=== PATIENT | male | born 1975 | race Caucasian/White ===

== ENCOUNTER → 2018-04-04 | Outpatient (CLI) | payer OTHER | END | disposition home or self-care (01) | LOC: RESCLI 10:17 | DX: E78.5 Hyperlipidemia, unspecified (principal); H60.501 Unspecified acute noninfective otitis externa, right ear; E78.00 Pure hypercholesterolemia, unspecified; Z88.0 Allergy status to penicillin ==

== ENCOUNTER → 2018-04-17 | Outpatient (CLI) | payer OTHER ==
[2018-04-17 10:12] LABS: BASO # 0.1 10*3/uL (0.0-0.1); EOS # 0.2 10*3/uL (0.0-0.4); EOS % 2.1 % (1.0-4.0); HEMATOCRIT 49.4 % (42.0-52.0); HEMOGLOBIN 16.8 g/dl (14.0-18.0); LYMPH # 2.4 10*3/uL (1.3-4.4); LYMPH % 33.8 % (27.0-41.0); MEAN CELL VOLUME 93.9 fl (80.0-94.0); MEAN CORPUSCULAR HGB 31.9 pg (27.0-31.0); MEAN PLATELET VOLUME 9.4 fl (9.6-12.3); MONO # 0.6 10*3/uL (0.1-1.0); MONO % 8.2 % (3.0-9.0); NEUT # 3.8 10*3/uL (2.3-7.9); NEUT % 54.5 % (47.0-73.0); PLATELET COUNT AUTOMATED 290 10*3/uL (130-400); RED BLOOD COUNT 5.26 10*6/uL (4.50-5.90); RED CELL DISTRI WIDTH 11.8 % (0-14.5)
[2018-04-17 10:38] LABS: ALBUMIN 4.1 gm/dl (3.1-4.5); ALKALINE PHOSPHATASE 96 U/L (45-117); BUN 20 mg/dl (7-24); CHLORIDE 102 mmol/L (98-107); CHOLESTEROL 327 mg/dL (<200); CREATININE 0.98 mg/dL (0.70-1.30); HDL CHOLESTEROL 38 mg/dl (40-60); LDL CHOLESTEROL 227 mg/dL (9-159); POTASSIUM 5.1 mmol/L (3.5-5.1); SGOT/AST 22 IU/L (3-35); SGPT/ALT 31 U/L (12-78); SODIUM 139 mmol/L (136-145); TOTAL PROTEIN 7.9 gm/dL (6.4-8.2); TRIGLYCERIDES 308 mg/dl (<150); VLDL CHOLESTEROL 62 mg/dL (6-40)
[2018-04-17 11:11] LABS: VITAMIN D, 25-HYDROXY 12.6 ng/mL (30-100)
== END | disposition home or self-care (01) ==
LOC: RESCLI 02:50
PROVIDERS: Internal Medicine
DX: E78.00 Pure hypercholesterolemia, unspecified (principal); H61.23 Impacted cerumen, bilateral; B49 Unspecified mycosis; E55.9 Vitamin D deficiency, unspecified; Z88.0 Allergy status to penicillin

== ENCOUNTER 2018-12-04 08:42 | Emergency (ER) | payer OTHER ==
[~2018-12-04] VITALS: Ht 175.2 cm; Wt 79.4 kg
[2018-12-04] MEDS ORDERED: Tobrex Ophth S2.5 ML OPH (09:44)
== END 2018-12-04 10:00 | disposition home or self-care (01) ==
LOC: ED 08:42
DX: S05.01XA Injury of conjunctiva and corneal abrasion without foreign body, right eye, initial encounter (principal); Z88.0 Allergy status to penicillin; X58.XXXA Exposure to other specified factors, initial encounter; Y93.89 Activity, other specified; Y92.89 Other specified places as the place of occurrence of the external cause; Y99.8 Other external cause status

== ENCOUNTER → 2019-01-10 | Outpatient (CLI) | payer OTHER ==
[~2019-01-10] MED LIST: Tobrex Ophth S2.5 ML OPH
== END | disposition home or self-care (01) ==
LOC: RESCLI 01:24
DX: R10.32 Left lower quadrant pain (principal); H93.12 Tinnitus, left ear; B49 Unspecified mycosis; E55.9 Vitamin D deficiency, unspecified; E78.00 Pure hypercholesterolemia, unspecified; Z79.899 Other long term (current) drug therapy

== ENCOUNTER → 2019-04-03 | Outpatient (CLI) | payer OTHER ==
[2019-04-03 09:04] LABS: BASO # 0.1 10*3/uL (0.0-0.1); BASO % 0.8 % (0.0-1.0); EOS # 0.2 10*3/uL (0.0-0.4); EOS % 2.2 % (1.0-4.0); LYMPH # 2.6 10*3/uL (1.3-4.4); LYMPH % 35.8 % (27.0-41.0); MEAN CELL VOLUME 95.2 fl (80.0-94.0); MEAN CORPUSCULAR HGB 31.7 pg (27.0-31.0); MEAN CORPUSCULAR HGB CONC 33.3 g/dl (33.0-37.0); MEAN PLATELET VOLUME 9.2 fl (9.6-12.3); MONO # 0.7 10*3/uL (0.1-1.0); MONO % 9.8 % (3.0-9.0); NEUT # 3.7 10*3/uL (2.3-7.9); PLATELET COUNT AUTOMATED 321 10*3/uL (130-400); RED BLOOD COUNT 5.04 10*6/uL (4.50-5.90); RED CELL DISTRI WIDTH 11.9 % (0-14.5); WHITE BLOOD COUNT 7.3 10*3/uL (4.8-10.8)
[2019-04-03 09:40] LABS: CHLORIDE 105 mmol/L (98-107); POTASSIUM 4.3 mmol/L (3.5-5.1); SODIUM 140 mmol/L (136-145)
[2019-04-03 09:56] LABS: ALKALINE PHOSPHATASE 96 U/L (45-117); BUN 19 mg/dl (7-24); CHOLESTEROL 349 mg/dL (<200); CREATININE 1.01 mg/dL (0.70-1.30); HDL CHOLESTEROL 35 mg/dl (40-60); LDL CHOLESTEROL 251 mg/dL (9-159); SGOT/AST 16 IU/L (3-35); SGPT/ALT 45 U/L (12-78); TOTAL PROTEIN 7.6 gm/dL (6.4-8.2); TRIGLYCERIDES 317 mg/dl (<150); VLDL CHOLESTEROL 63 mg/dL (6-40)
== END | disposition home or self-care (01) ==
LOC: LAB 08:41
PROVIDERS: Nurse Practitioner Primary Care
DX: M41.85 Other forms of scoliosis, thoracolumbar region (principal); M43.9 Deforming dorsopathy, unspecified; E78.5 Hyperlipidemia, unspecified

== ENCOUNTER 2019-08-08 19:27 | Emergency (ER) | payer OTHER ==
[~2019-08-08] VITALS: Ht 172.7 cm; Wt 90.7 kg
[2019-08-08 20:57] LABS: BASO # 0.1 10*3/uL (0.0-0.1); BASO % 1.1 % (0.0-1.0); EOS # 0.2 10*3/uL (0.0-0.4); EOS % 2.5 % (1.0-4.0); HEMATOCRIT 45.3 % (42.0-52.0); LYMPH # 3.2 10*3/uL (1.3-4.4); LYMPH % 39.9 % (27.0-41.0); MEAN PLATELET VOLUME 9.3 fl (9.6-12.3); MONO # 0.6 10*3/uL (0.1-1.0); MONO % 7.6 % (3.0-9.0); NEUT # 3.9 10*3/uL (2.3-7.9); NEUT % 48.6 % (47.0-73.0); PLATELET COUNT AUTOMATED 283 10*3/uL (130-400); RED BLOOD COUNT 4.82 10*6/uL (4.50-5.90); RED CELL DISTRI WIDTH 11.9 % (0-14.5)
[2019-08-08 21:07] LABS: INTERNATIONAL NORM RATIO 0.9 (2.0-3.5)
[2019-08-08 21:14] LABS: ALBUMIN 3.9 gm/dl (3.1-4.5); ALKALINE PHOSPHATASE 89 U/L (45-117); BUN 19 mg/dl (7-24); CHLORIDE 104 mmol/L (98-107); CREATININE 0.95 mg/dL (0.70-1.30); FREE T4 0.75 ng/dl (0.76-1.46); POTASSIUM 4.1 mmol/L (3.5-5.1); SGOT/AST 33 IU/L (3-35); SGPT/ALT 65 U/L (12-78); SODIUM 138 mmol/L (136-145); TOTAL PROTEIN 7.4 gm/dL (6.4-8.2)
[2019-08-08 21:24] LABS: TROPONIN I < 0.015 ng/ml (<0.045)
== END 2019-08-08 22:37 | disposition home or self-care (01) ==
LOC: ED 19:27
PROVIDERS: Physician Assistant
DX: R20.2 Paresthesia of skin (principal); I10 Essential (primary) hypertension; E78.00 Pure hypercholesterolemia, unspecified; Z79.899 Other long term (current) drug therapy; Z88.0 Allergy status to penicillin

== ENCOUNTER → 2019-09-10 | Outpatient (CLI) | payer OTHER ==
[2019-09-10 07:55] VITALS: BP 121/85
[2019-09-10 10:11] LABS: ALBUMIN 4.3 gm/dl (3.1-4.5); ALKALINE PHOSPHATASE 93 U/L (45-117); BUN 24 mg/dl (7-24); CHLORIDE 102 mmol/L (98-107); CHOLESTEROL 348 mg/dL (<200); CREATININE 0.95 mg/dL (0.70-1.30); FREE T4 0.73 ng/dl (0.76-1.46); HDL CHOLESTEROL 36 mg/dl (40-60); LDL CHOLESTEROL 268 mg/dL (9-159); POTASSIUM 4.3 mmol/L (3.5-5.1); SGOT/AST 12 IU/L (3-35); SGPT/ALT 34 U/L (12-78); SODIUM 136 mmol/L (136-145); T3 UPTAKE 31 % (31-39); THYROXINE (T4) TOTAL 6.3 ug/dl (4.5-12.1); TOTAL PROTEIN 8.3 gm/dL (6.4-8.2); TRIGLYCERIDES 221 mg/dl (<150); VLDL CHOLESTEROL 44 mg/dL (6-40)
[2019-09-11 08:11] LABS: FOLLICLE STIMULATING HORMONE 3.2 mIU/mL (1.5-12.4); LUTEINIZING HORMONE 1.7 mIU/mL (1.7-8.6); PROLACTIN 22.6 ng/mL (4.0-15.2); SEX HORMONE BINDING GLOBULIN 22.8 nmol/L (16.5-55.9)
[2019-09-11 13:08] LABS: CORTISOL #2 28.7 ug/dL (Not Estab.); CORTISOL #3 34.4 ug/dL (Not Estab.); CORTISOL BASELINE 16.4 ug/dL (.)
[2019-09-12 06:10] LABS: HUMAN GROWTH HORMONE 0.4 ng/mL (0.0-10.0); INSULIN-LIKE GROWTH FACTOR-1 218 ng/mL (81-263)
[2019-09-13 12:10] LABS: TESTOSTERONE FREE, (DIRECT) 10.5 pg/mL (6.8-21.5)
== END | disposition home or self-care (01) ==
LOC: LAB 07:42 → INJECTION 07:42
PROVIDERS: Internal Medicine Endocrinology, Diabetes & Metabolism
DX: D35.2 Benign neoplasm of pituitary gland (principal); I10 Essential (primary) hypertension; E78.00 Pure hypercholesterolemia, unspecified

== ENCOUNTER → 2019-10-07 | Outpatient (CLI) | payer OTHER ==
[2019-10-07 11:16] LABS: FREE T4 1.68 ng/dl (0.76-1.46)
[2019-10-07 11:21] LABS: THYROID STIM HORMONE (HS) 0.026 uIU/ml (0.358-4.75)
== END | disposition home or self-care (01) ==
LOC: LAB 10:17
PROVIDERS: Physical Medicine & Rehabilitation
DX: E03.8 Other specified hypothyroidism (principal)

== ENCOUNTER → 2020-02-26 | Outpatient (CLI) | payer OTHER ==
[~2020-02-26] MED LIST changes: +LEVOTHYROXINE100 MC1 PO; +MULTIVITAMIN1 EACH PO; +PREDNISONE20 M1 PO; +PROPRANOLOL HYD20 MG PO; +PROTONIX40 MG PO; +VITAMIN B-125000 MC2 PO; +VITAMIN D350 MC2 GT
[2020-02-26 10:48] LABS: HEMATOCRIT 50.4 % (42.0-52.0); MEAN CELL VOLUME 97.1 fl (80.0-94.0); MEAN CORPUSCULAR HGB 31.6 pg (27.0-31.0); MEAN CORPUSCULAR HGB CONC 32.5 g/dl (33.0-37.0); MEAN PLATELET VOLUME 9.3 fl (9.6-12.3); PLATELET COUNT AUTOMATED 175 10*3/uL (130-400); RED BLOOD COUNT 5.19 10*6/uL (4.50-5.90); RED CELL DISTRI WIDTH 13.9 % (0-14.5); WHITE BLOOD COUNT 21.4 10*3/uL (4.8-10.8)
[2020-02-26 11:02] LABS: ALBUMIN 3.8 gm/dl (3.1-4.5); ALKALINE PHOSPHATASE 88 U/L (45-117); BUN 20 mg/dl (7-24); CHLORIDE 104 mmol/L (98-107); CHOLESTEROL 308 mg/dL (<200); CREATININE 0.61 mg/dL (0.70-1.30); HDL CHOLESTEROL 58 mg/dl (40-60); LDL CHOLESTEROL 193 mg/dL (9-159); POTASSIUM 4.4 mmol/L (3.5-5.1); SGOT/AST 24 IU/L (3-35); SGPT/ALT 55 U/L (12-78); SODIUM 138 mmol/L (136-145); TOTAL PROTEIN 6.7 gm/dL (6.4-8.2); TRIGLYCERIDES 286 mg/dl (<150); VLDL CHOLESTEROL 57 mg/dL (6-40)
[2020-02-26 11:08] LABS: PLATELET SUFFICIENCY NORMAL (NORMAL); TOTAL CELLS COUNTED 100 #CELLS
[2020-02-26 12:01] LABS: VITAMIN D, 25-HYDROXY 26.5 ng/mL (30-100)
[2020-02-27 03:06] LABS: HEMOGLOBIN 16.9 g/dL (13.0-17.7); RBC 5.27 x10E6/uL (4.14-5.80); WBC 21.9 x10E3/uL (3.4-10.8)
[2020-02-27 15:07] LABS: ABS CD19+ LYMPHS 740 /uL (12-645); ABS CD8 SUPPRESSOR 905 /uL (109-897); ABSOLUTE CD3 1949 /uL (622-2402); ABSOLUTE CD4 HELPER 986 /uL (359-1519); CD4/CD8 RATIO 1.09 (0.92-3.72); PERCENT CD19+LYMPHS 25.5 % (3.3-25.4); PERCENT CD3 POS LYMPHS 67.2 % (57.5-86.2); PERCENT CD8 POS LYMPHS 31.2 % (12.0-35.5)
== END | disposition home or self-care (01) ==
LOC: LAB 00:17
PROVIDERS: Nurse Practitioner Primary Care; Psychiatry & Neurology Neuromuscular Medicine; ATTEND Physical Medicine & Rehabilitation
DX: E78.00 Pure hypercholesterolemia, unspecified (principal); R73.9 Hyperglycemia, unspecified; E55.9 Vitamin D deficiency, unspecified; D35.2 Benign neoplasm of pituitary gland; E23.0 Hypopituitarism; R73.03 Prediabetes

== ENCOUNTER → 2020-03-03 | Outpatient (CLI) | payer OTHER ==
[2020-03-03 09:22] LABS: ACT PARTIAL THROMBO TIME 22.7 SECONDS (20.0-32.1); INTERNATIONAL NORM RATIO 0.9 (2.0-3.5)
== END | disposition home or self-care (01) ==
LOC: LAB 00:13
PROVIDERS: ATTEND Nurse Practitioner Primary Care
DX: Z01.818 Encounter for other preprocedural examination (principal); I10 Essential (primary) hypertension

== ENCOUNTER → 2020-03-05 | Day surgery (SDC) | payer OTHER | LOC: SDC 07:32 | PROVIDERS: ATTEND Psychiatry & Neurology Neuromuscular Medicine | DX: Z45.2 Encounter for adjustment and management of vascular access device (principal) ==

== ENCOUNTER → 2020-04-01 | Outpatient (CLI) | payer OTHER ==
[~2020-04-01] MED LIST changes: +DECADRON6 M1 PO; +DEPO-TESTO100 MG/1 M IM; +FISH OIL 1,0001 EAC4 PO; +NORTRIPTYLINE H50 M1 PO; +PROAIR HFA8.5 GM INH; +VENTOLIN 02.5 MG/3 M INH
[2020-04-01 08:03] LABS: HEMATOCRIT 51.1 % (42.0-52.0); MEAN CELL VOLUME 98.1 fl (80.0-94.0); MEAN CORPUSCULAR HGB 31.9 pg (27.0-31.0); MEAN CORPUSCULAR HGB CONC 32.5 g/dl (33.0-37.0); MEAN PLATELET VOLUME 8.9 fl (9.6-12.3); PLATELET COUNT AUTOMATED 284 10*3/uL (130-400); RED BLOOD COUNT 5.21 10*6/uL (4.50-5.90); RED CELL DISTRI WIDTH 13.6 % (0-14.5); WHITE BLOOD COUNT 14.6 10*3/uL (4.8-10.8)
[2020-04-01 08:27] LABS: BASOPHILS 1 % (0-1); PLATELET SUFFICIENCY NORMAL (NORMAL); POLYCHROMASIA SLIGHT; TOTAL CELLS COUNTED 100 #CELLS
[2020-04-01 08:34] LABS: ALBUMIN 3.5 gm/dl (3.1-4.5); ALKALINE PHOSPHATASE 89 U/L (45-117); BUN 19 mg/dl (7-24); CHLORIDE 104 mmol/L (98-107); CREATININE 0.67 mg/dL (0.70-1.30); POTASSIUM 3.7 mmol/L (3.5-5.1); SGOT/AST 16 IU/L (3-35); SGPT/ALT 53 U/L (12-78); SODIUM 138 mmol/L (136-145); TOTAL PROTEIN 6.6 gm/dL (6.4-8.2)
[2020-04-02 03:07] LABS: HEMATOCRIT 50.7 % (37.5-51.0); RBC 5.13 x10E6/uL (4.14-5.80); WBC 13.8 x10E3/uL (3.4-10.8)
[2020-04-02 15:10] LABS: ABS CD19+ LYMPHS 0 /uL (12-645); ABS CD8 SUPPRESSOR 1224 /uL (109-897); ABSOLUTE CD3 3456 /uL (622-2402); ABSOLUTE CD4 HELPER 2207 /uL (359-1519); PERCENT CD4 POS LYMPHS 61.3 % (30.8-58.5)
== END | disposition home or self-care (01) ==
LOC: LAB 00:52
PROVIDERS: ATTEND Psychiatry & Neurology Neuromuscular Medicine
DX: G61.81 Chronic inflammatory demyelinating polyneuritis (principal); Z79.899 Other long term (current) drug therapy

== ENCOUNTER 2020-05-05 10:56 | Emergency (ER) | payer OTHER ==
[~2020-05-05] VITALS: Ht 175.2 cm; Wt 68.0 kg
[~2020-05-05 10:56] MED LIST changes: -DECADRON6 M1 PO; -DEPO-TESTO100 MG/1 M IM; -FISH OIL 1,0001 EAC4 PO; -NORTRIPTYLINE H50 M1 PO; -PROAIR HFA8.5 GM INH; -VENTOLIN 02.5 MG/3 M INH
[2020-05-05 11:23] LABS: BASO # 0.1 10*3/uL (0.0-0.1); BASO % 0.5 % (0.0-1.0); EOS % 0.2 % (1.0-4.0); HEMATOCRIT 50.7 % (42.0-52.0); LYMPH # 1.6 10*3/uL (1.3-4.4); LYMPH % 17.3 % (27.0-41.0); MEAN CELL VOLUME 96.8 fl (80.0-94.0); MEAN CORPUSCULAR HGB 31.7 pg (27.0-31.0); MEAN CORPUSCULAR HGB CONC 32.7 g/dl (33.0-37.0); MEAN PLATELET VOLUME 8.8 fl (9.6-12.3); MONO # 0.5 10*3/uL (0.1-1.0); MONO % 5.8 % (3.0-9.0); NEUT # 6.8 10*3/uL (2.3-7.9); NEUT % 73.9 % (47.0-73.0); PLATELET COUNT AUTOMATED 259 10*3/uL (130-400); RED BLOOD COUNT 5.24 10*6/uL (4.50-5.90); RED CELL DISTRI WIDTH 13.6 % (0-14.5); WHITE BLOOD COUNT 9.2 10*3/uL (4.8-10.8)
[2020-05-05 11:35] LABS: ACT PARTIAL THROMBO TIME 29.9 SECONDS (20.0-32.1); INTERNATIONAL NORM RATIO 0.9 (2.0-3.5)
[2020-05-05 11:40] LABS: ALBUMIN 3.2 gm/dl (3.1-4.5); ALKALINE PHOSPHATASE 66 U/L (45-117); BUN 18 mg/dl (7-24); CHLORIDE 102 mmol/L (98-107); CREATININE 0.57 mg/dL (0.70-1.30); LIPASE 103 U/L (73-393); POTASSIUM 3.9 mmol/L (3.5-5.1); SGOT/AST 42 IU/L (3-35); SGPT/ALT 44 U/L (12-78); SODIUM 139 mmol/L (136-145); TOTAL PROTEIN 6.8 gm/dL (6.4-8.2)
[2020-05-05 11:44] LABS: TROPONIN I < 0.015 ng/ml (<0.045)
== END 2020-05-05 14:17 | disposition home or self-care (01) ==
LOC: ED 10:56
PROVIDERS: Emergency Medicine
DX: R53.1 Weakness (principal); R00.0 Tachycardia, unspecified; I10 Essential (primary) hypertension; E78.00 Pure hypercholesterolemia, unspecified; Z79.899 Other long term (current) drug therapy

== ENCOUNTER 2020-05-10 16:21 | Inpatient (IN) | payer OTHER ==
[~2020-05-10] VITALS: Ht 175.2 cm; Wt 72.8 kg
[2020-05-10 16:40] VITALS: BP 114/81
[2020-05-10 17:23] VITALS: BP 125/89
[2020-05-10 17:50] LABS: HEMATOCRIT 49.2 % (42.0-52.0); MEAN CELL VOLUME 96.7 fl (80.0-94.0); MEAN CORPUSCULAR HGB 31.4 pg (27.0-31.0); MEAN CORPUSCULAR HGB CONC 32.5 g/dl (33.0-37.0); MEAN PLATELET VOLUME 8.7 fl (9.6-12.3); NUCLEATED RED BLOOD CELL 0.2 % (0.0-0.0); PLATELET COUNT AUTOMATED 457 10*3/uL (130-400); RED BLOOD COUNT 5.09 10*6/uL (4.50-5.90); RED CELL DISTRI WIDTH 13.6 % (0-14.5); WHITE BLOOD COUNT 12.8 10*3/uL (4.8-10.8)
[2020-05-10 18:01] LABS: ACT PARTIAL THROMBO TIME 29.4 SECONDS (20.0-32.1)
[2020-05-10 18:04] LABS: ALBUMIN 2.8 gm/dl (3.1-4.5); ALKALINE PHOSPHATASE 70 U/L (45-117); BUN 20 mg/dl (7-24); CHLORIDE 102 mmol/L (98-107); CREATININE 0.53 mg/dL (0.70-1.30); LIPASE 103 U/L (73-393); POTASSIUM 3.9 mmol/L (3.5-5.1); SGOT/AST 54 IU/L (3-35); SGPT/ALT 39 U/L (12-78); SODIUM 137 mmol/L (136-145); TOTAL PROTEIN 7.2 gm/dL (6.4-8.2)
[2020-05-10 18:06] LABS: TROPONIN I < 0.015 ng/ml (<0.045)
[2020-05-10 18:09] LABS: PLATELET SUFFICIENCY HIGH (NORMAL); TOTAL CELLS COUNTED 100 #CELLS
[2020-05-10 20:53] VITALS: BP 118/75
[2020-05-11] VITALS (8 sets, daily range): BP systolic 90–120; BP diastolic 44–81
[2020-05-11] MEDS ORDERED: VENTOLIN 02.5 MG/3 M INH (02:25)
[2020-05-11] MEDS ORDERED: PROAIR HFA8.5 GM INH (02:25)
[2020-05-11] MEDS ORDERED: NORTRIPTYLINE H50 M1 PO (02:26)
[2020-05-11] MEDS ORDERED: FISH OIL 1,0001 EAC4 PO (05:11)
[2020-05-11 06:23] LABS: ALBUMIN 2.5 gm/dl (3.1-4.5); ALKALINE PHOSPHATASE 65 U/L (45-117); BUN 18 mg/dl (7-24); CHLORIDE 107 mmol/L (98-107); CPK 119 U/L (39-308); CREATININE 0.47 mg/dL (0.70-1.30); FREE T4 1.31 ng/dl (0.76-1.46); LDH 542 U/L (87-241); POTASSIUM 4.2 mmol/L (3.5-5.1); SGOT/AST 43 IU/L (3-35); SGPT/ALT 29 U/L (12-78); SODIUM 139 mmol/L (136-145); TOTAL PROTEIN 6.4 gm/dL (6.4-8.2)
[2020-05-11 06:28] LABS: THYROID STIM HORMONE (HS) 0.154 uIU/ml (0.358-4.75)
[2020-05-11 06:35] LABS: HEMATOCRIT 44.2 % (42.0-52.0); MEAN CELL VOLUME 96.9 fl (80.0-94.0); MEAN CORPUSCULAR HGB 30.9 pg (27.0-31.0); MEAN CORPUSCULAR HGB CONC 31.9 g/dl (33.0-37.0); MEAN PLATELET VOLUME 8.8 fl (9.6-12.3); PLATELET COUNT AUTOMATED 448 10*3/uL (130-400); RED BLOOD COUNT 4.56 10*6/uL (4.50-5.90); RED CELL DISTRI WIDTH 13.7 % (0-14.5); WHITE BLOOD COUNT 7.1 10*3/uL (4.8-10.8)
[2020-05-11 07:13] LABS: FERRITIN 829.5 ng/mL (22.0-322.0); VITAMIN D, 25-HYDROXY 68.4 ng/mL (30-100)
[2020-05-11 07:43] LABS: PLATELET SUFFICIENCY HIGH (NORMAL); POLYCHROMASIA SLIGHT; TOTAL CELLS COUNTED 100 #CELLS
[2020-05-11 07:45] LABS: ABG BASE EXCESS 1.3 mmol/L (-2.0-2.0); ARTERIAL BLOOD GAS PH 7.456 (7.35-7.45); ARTERIAL BLOOD GAS PO2 67.4 (80-90)
[2020-05-11 14:11] LABS: ABG BASE EXCESS 0.5 mmol/L (-2.0-2.0); ARTERIAL BLOOD GAS PH 7.438 (7.35-7.45); ARTERIAL BLOOD GAS PO2 94.5 (80-90)
[2020-05-11 18:03] LABS: ABG BASE EXCESS -0.5 mmol/L (-2.0-2.0); ARTERIAL BLOOD GAS PH 7.472 (7.35-7.45); ARTERIAL BLOOD GAS PO2 126.2 (80-90)
[2020-05-12] VITALS: BP 119/78
[2020-05-12 04:00] VITALS: BP 105/72
[2020-05-12 08:00] VITALS: BP 95/64
[2020-05-12] MEDS ORDERED: DEPO-TESTO100 MG/1 M IM (10:56)
[2020-05-12 12:00] VITALS: BP 100/54
[2020-05-12 12:43] LABS: ABG BASE EXCESS -0.9 mmol/L (-2.0-2.0); ARTERIAL BLOOD GAS PH 7.452 (7.35-7.45); ARTERIAL BLOOD GAS PO2 99.4 (80-90)
[2020-05-12 14:28] LABS: HEMATOCRIT 43.5 % (42.0-52.0); MEAN CELL VOLUME 96.5 fl (80.0-94.0); MEAN CORPUSCULAR HGB 31.3 pg (27.0-31.0); MEAN CORPUSCULAR HGB CONC 32.4 g/dl (33.0-37.0); MEAN PLATELET VOLUME 8.7 fl (9.6-12.3); PLATELET COUNT AUTOMATED 504 10*3/uL (130-400); RED BLOOD COUNT 4.51 10*6/uL (4.50-5.90); RED CELL DISTRI WIDTH 13.6 % (0-14.5); WHITE BLOOD COUNT 17.5 10*3/uL (4.8-10.8)
[2020-05-12 14:44] LABS: BURR CELLS FEW; TOTAL CELLS COUNTED 100 #CELLS
[2020-05-12 14:45] LABS: PLATELET SUFFICIENCY HIGH (NORMAL)
[2020-05-12 15:01] LABS: ALBUMIN 2.3 gm/dl (3.1-4.5); ALKALINE PHOSPHATASE 62 U/L (45-117); BUN 18 mg/dl (7-24); CHLORIDE 109 mmol/L (98-107); CREATININE 0.58 mg/dL (0.70-1.30); LDH 568 U/L (87-241); POTASSIUM 3.8 mmol/L (3.5-5.1); SGOT/AST 36 IU/L (3-35); SGPT/ALT 27 U/L (12-78); SODIUM 140 mmol/L (136-145)
[2020-05-12 16:00] VITALS: BP 97/60
[2020-05-12 20:00] VITALS: BP 102/64
[2020-05-13] VITALS: BP 113/73
[2020-05-13 04:00] VITALS: BP 113/79
[2020-05-13 05:49] LABS: ALBUMIN 2.3 gm/dl (3.1-4.5); ALKALINE PHOSPHATASE 56 U/L (45-117); BUN 17 mg/dl (7-24); CHLORIDE 111 mmol/L (98-107); CREATININE 0.45 mg/dL (0.70-1.30); LDH 565 U/L (87-241); POTASSIUM 3.3 mmol/L (3.5-5.1); SGOT/AST 29 IU/L (3-35); SGPT/ALT 25 U/L (12-78); SODIUM 142 mmol/L (136-145); TOTAL PROTEIN 5.8 gm/dL (6.4-8.2)
[2020-05-13 06:17] LABS: HEMATOCRIT 43.6 % (42.0-52.0); MEAN CELL VOLUME 98.2 fl (80.0-94.0); MEAN CORPUSCULAR HGB 31.1 pg (27.0-31.0); MEAN CORPUSCULAR HGB CONC 31.7 g/dl (33.0-37.0); MEAN PLATELET VOLUME 8.9 fl (9.6-12.3); PLATELET COUNT AUTOMATED 454 10*3/uL (130-400); RED BLOOD COUNT 4.44 10*6/uL (4.50-5.90); RED CELL DISTRI WIDTH 13.5 % (0-14.5); WHITE BLOOD COUNT 13.9 10*3/uL (4.8-10.8)
[2020-05-13 07:02] LABS: PLATELET SUFFICIENCY HIGH (NORMAL); POLYCHROMASIA SLIGHT; TOTAL CELLS COUNTED 100 #CELLS
[2020-05-13 08:00] VITALS: BP 118/79
[2020-05-13 12:00] VITALS: BP 104/69
[2020-05-13 16:00] VITALS: BP 123/83
[2020-05-13 20:00] VITALS: BP 117/72
[2020-05-14] VITALS: BP 115/82
[2020-05-14 05:37] LABS: ALBUMIN 2.1 gm/dl (3.1-4.5); ALKALINE PHOSPHATASE 57 U/L (45-117); BUN 13 mg/dl (7-24); CHLORIDE 111 mmol/L (98-107); CREATININE 0.46 mg/dL (0.70-1.30); LDH 488 U/L (87-241); POTASSIUM 3.2 mmol/L (3.5-5.1); SGOT/AST 19 IU/L (3-35); SGPT/ALT 24 U/L (12-78); SODIUM 143 mmol/L (136-145); TOTAL PROTEIN 5.3 gm/dL (6.4-8.2)
[2020-05-14 06:32] LABS: HEMATOCRIT 40.5 % (42.0-52.0); MEAN CELL VOLUME 97.6 fl (80.0-94.0); MEAN CORPUSCULAR HGB 31.1 pg (27.0-31.0); MEAN CORPUSCULAR HGB CONC 31.9 g/dl (33.0-37.0); MEAN PLATELET VOLUME 8.8 fl (9.6-12.3); PLATELET COUNT AUTOMATED 386 10*3/uL (130-400); RED BLOOD COUNT 4.15 10*6/uL (4.50-5.90); RED CELL DISTRI WIDTH 13.2 % (0-14.5); WHITE BLOOD COUNT 13.8 10*3/uL (4.8-10.8)
[2020-05-14 08:00] VITALS: BP 119/79
[2020-05-14 08:03] LABS: BURR CELLS FEW; DIFFERENTIAL COMMENT S; PLATELET SUFFICIENCY NORMAL (NORMAL); POLYCHROMASIA SLIGHT; TOTAL CELLS COUNTED 100 #CELLS
[2020-05-14 12:00] VITALS: BP 120/60
[2020-05-14 16:00] VITALS: BP 124/81
[2020-05-14 20:00] VITALS: BP 119/75
[2020-05-15] VITALS: BP 122/82
[2020-05-15 06:09] LABS: ALBUMIN 2.2 gm/dl (3.1-4.5); ALKALINE PHOSPHATASE 53 U/L (45-117); BUN 14 mg/dl (7-24); CHLORIDE 110 mmol/L (98-107); CREATININE 0.36 mg/dL (0.70-1.30); LDH 456 U/L (87-241); POTASSIUM 3.4 mmol/L (3.5-5.1); SGOT/AST 20 IU/L (3-35); SGPT/ALT 21 U/L (12-78); SODIUM 146 mmol/L (136-145); TOTAL PROTEIN 5.1 gm/dL (6.4-8.2)
[2020-05-15 06:15] LABS: HEMATOCRIT 39.8 % (42.0-52.0); MEAN CELL VOLUME 96.6 fl (80.0-94.0); MEAN CORPUSCULAR HGB 30.8 pg (27.0-31.0); MEAN CORPUSCULAR HGB CONC 31.9 g/dl (33.0-37.0); MEAN PLATELET VOLUME 8.9 fl (9.6-12.3); NUCLEATED RED BLOOD CELL 0.1 % (0.0-0.0); PLATELET COUNT AUTOMATED 391 10*3/uL (130-400); RED BLOOD COUNT 4.12 10*6/uL (4.50-5.90); RED CELL DISTRI WIDTH 13.3 % (0-14.5); WHITE BLOOD COUNT 14.5 10*3/uL (4.8-10.8)
[2020-05-15 07:40] LABS: ATYPICAL LYMPHS 1 % (0-0); PLATELET SUFFICIENCY NORMAL (NORMAL); TOTAL CELLS COUNTED 100 #CELLS
[2020-05-15 08:00] VITALS: BP 115/81
[2020-05-15 12:00] VITALS: BP 103/67
[2020-05-15 16:00] VITALS: BP 131/87
[2020-05-15 20:00] VITALS: BP 103/69
[2020-05-16] VITALS: BP 99/62
[2020-05-16 05:58] LABS: ALBUMIN 2.6 gm/dl (3.1-4.5); ALKALINE PHOSPHATASE 70 U/L (45-117); BUN 15 mg/dl (7-24); CHLORIDE 106 mmol/L (98-107); CPK 63 U/L (39-308); CREATININE 0.47 mg/dL (0.70-1.30); LDH 522 U/L (87-241); SGOT/AST 17 IU/L (3-35); SGPT/ALT 31 U/L (12-78); SODIUM 141 mmol/L (136-145)
[2020-05-16 05:59] LABS: HEMATOCRIT 45.4 % (42.0-52.0); MEAN CELL VOLUME 98.7 fl (80.0-94.0); MEAN CORPUSCULAR HGB 30.9 pg (27.0-31.0); MEAN CORPUSCULAR HGB CONC 31.3 g/dl (33.0-37.0); MEAN PLATELET VOLUME 8.9 fl (9.6-12.3); NUCLEATED RED BLOOD CELL 0.1 10*3/uL (0.0-0.0); NUCLEATED RED BLOOD CELL 0.3 % (0.0-0.0); PLATELET COUNT AUTOMATED 444 10*3/uL (130-400); RED CELL DISTRI WIDTH 13.3 % (0-14.5); WHITE BLOOD COUNT 16.5 10*3/uL (4.8-10.8)
[2020-05-16 06:24] LABS: POTASSIUM 4.5 mmol/L (3.5-5.1)
[2020-05-16 06:51] LABS: PLATELET SUFFICIENCY HIGH (NORMAL); TOTAL CELLS COUNTED 100 #CELLS
[2020-05-16 08:00] VITALS: BP 96/46
[2020-05-16 12:00] VITALS: BP 101/76
[2020-05-16 14:00] VITALS: BP 101/76
[2020-05-16 16:00] VITALS: BP 107/56
[2020-05-16 20:00] VITALS: BP 101/58
[2020-05-17] VITALS: BP 125/89
[2020-05-17 06:22] LABS: HEMATOCRIT 42.7 % (42.0-52.0); MEAN CELL VOLUME 96.6 fl (80.0-94.0); MEAN CORPUSCULAR HGB CONC 32.1 g/dl (33.0-37.0); MEAN PLATELET VOLUME 8.9 fl (9.6-12.3); NUCLEATED RED BLOOD CELL 0.1 10*3/uL (0.0-0.0); NUCLEATED RED BLOOD CELL 0.3 % (0.0-0.0); PLATELET COUNT AUTOMATED 394 10*3/uL (130-400); RED BLOOD COUNT 4.42 10*6/uL (4.50-5.90); RED CELL DISTRI WIDTH 13.2 % (0-14.5); WHITE BLOOD COUNT 18.4 10*3/uL (4.8-10.8)
[2020-05-17 06:36] LABS: ALBUMIN 2.3 gm/dl (3.1-4.5); ALKALINE PHOSPHATASE 66 U/L (45-117); BUN 13 mg/dl (7-24); CHLORIDE 104 mmol/L (98-107); CREATININE 0.37 mg/dL (0.70-1.30); LDH 398 U/L (87-241); POTASSIUM 4.4 mmol/L (3.5-5.1); SGOT/AST 16 IU/L (3-35); SGPT/ALT 27 U/L (12-78); SODIUM 139 mmol/L (136-145); TOTAL PROTEIN 5.4 gm/dL (6.4-8.2)
[2020-05-17 06:46] LABS: CPK 40 U/L (39-308)
[2020-05-17 07:17] LABS: ATYPICAL LYMPHS 1 % (0-0); TOTAL CELLS COUNTED 100 #CELLS
[2020-05-17 07:18] LABS: PLATELET SUFFICIENCY NORMAL (NORMAL); POLYCHROMASIA SLIGHT
[2020-05-17 08:00] VITALS: BP 126/80
[2020-05-17 12:00] VITALS: BP 98/55
[2020-05-17 16:00] VITALS: BP 119/91
[2020-05-17 20:00] VITALS: BP 136/85
[2020-05-18] VITALS: BP 123/95
[2020-05-18 06:20] LABS: HEMATOCRIT 42.9 % (42.0-52.0); MEAN CELL VOLUME 96.6 fl (80.0-94.0); MEAN CORPUSCULAR HGB 31.1 pg (27.0-31.0); MEAN CORPUSCULAR HGB CONC 32.2 g/dl (33.0-37.0); MEAN PLATELET VOLUME 8.9 fl (9.6-12.3); NUCLEATED RED BLOOD CELL 0.1 10*3/uL (0.0-0.0); NUCLEATED RED BLOOD CELL 0.6 % (0.0-0.0); PLATELET COUNT AUTOMATED 382 10*3/uL (130-400); RED BLOOD COUNT 4.44 10*6/uL (4.50-5.90); RED CELL DISTRI WIDTH 13.5 % (0-14.5); WHITE BLOOD COUNT 18.9 10*3/uL (4.8-10.8)
[2020-05-18 06:29] LABS: ALBUMIN 2.4 gm/dl (3.1-4.5); ALKALINE PHOSPHATASE 67 U/L (45-117); BUN 14 mg/dl (7-24); CHLORIDE 103 mmol/L (98-107); CREATININE 0.49 mg/dL (0.70-1.30); LDH 480 U/L (87-241); POTASSIUM 4.6 mmol/L (3.5-5.1); SGOT/AST 26 IU/L (3-35); SGPT/ALT 30 U/L (12-78); SODIUM 138 mmol/L (136-145); TOTAL PROTEIN 5.5 gm/dL (6.4-8.2)
[2020-05-18 06:45] LABS: CPK 66 U/L (39-308)
[2020-05-18 06:53] LABS: ATYPICAL LYMPHS 1 % (0-0); PLATELET SUFFICIENCY NORMAL (NORMAL); POLYCHROMASIA SLIGHT; TOTAL CELLS COUNTED 100 #CELLS
[2020-05-18 08:00] VITALS: BP 96/54
[2020-05-18 09:20] VITALS: BP 98/50
[2020-05-18 12:00] VITALS: BP 106/90
[2020-05-18] MEDS ORDERED: DECADRON6 M1 PO (12:03)
== END 2020-05-18 15:45 | disposition home health service (06) | DRG 871 ==
LOC: ED 16:21 → EDHOLD 18:51 → ICCU 18:51 → EDHOLD 20:26 → 4E 05-11 01:10 → ICCU 05-11 09:49 → 4E 05-14 09:19
PROVIDERS: Emergency Medicine; Family Medicine; Internal Medicine; Internal Medicine Critical Care Medicine; ADMIT Internal Medicine; ATTEND Internal Medicine
PROC: XW033E5 Introduction of Remdesivir Anti-infective into Peripheral Vein, Percutaneous Approach, New Technology Group 5 (ICD-10-PCS; principal; 2020-05-10)
PROC: 5A0935A Assistance with Respiratory Ventilation, Less than 24 Consecutive Hours, High Flow/Velocity Cannula (ICD-10-PCS; 2020-05-10)
PROC: 5A09357 Assistance with Respiratory Ventilation, Less than 24 Consecutive Hours, Continuous Positive Airway Pressure (ICD-10-PCS; 2020-05-13)
PROC: 5A0935A Assistance with Respiratory Ventilation, Less than 24 Consecutive Hours, High Flow/Velocity Cannula (ICD-10-PCS; 2020-05-14)
PROC: 5A09357 Assistance with Respiratory Ventilation, Less than 24 Consecutive Hours, Continuous Positive Airway Pressure (ICD-10-PCS; 2020-05-14)
PROC: 5A0935A Assistance with Respiratory Ventilation, Less than 24 Consecutive Hours, High Flow/Velocity Cannula (ICD-10-PCS; 2020-05-15)
PROC: 5A09357 Assistance with Respiratory Ventilation, Less than 24 Consecutive Hours, Continuous Positive Airway Pressure (ICD-10-PCS; 2020-05-15)
PROC: 5A0935A Assistance with Respiratory Ventilation, Less than 24 Consecutive Hours, High Flow/Velocity Cannula (ICD-10-PCS; 2020-05-16)
PROC: 5A09357 Assistance with Respiratory Ventilation, Less than 24 Consecutive Hours, Continuous Positive Airway Pressure (ICD-10-PCS; 2020-05-16)
PROC: 5A09357 Assistance with Respiratory Ventilation, Less than 24 Consecutive Hours, Continuous Positive Airway Pressure (ICD-10-PCS; 2020-05-17)
PROC: 5A09357 Assistance with Respiratory Ventilation, Less than 24 Consecutive Hours, Continuous Positive Airway Pressure (ICD-10-PCS; 2020-05-18)
DX: A41.9 Sepsis, unspecified organism (principal); E43 Unspecified severe protein-calorie malnutrition; U07.1 COVID-19; J96.01 Acute respiratory failure with hypoxia; J12.82 Pneumonia due to coronavirus disease 2019; G61.81 Chronic inflammatory demyelinating polyneuritis; R65.20 Severe sepsis without septic shock; D75.89 Other specified diseases of blood and blood-forming organs; R26.2 Difficulty in walking, not elsewhere classified; D35.2 Benign neoplasm of pituitary gland; E34.9 Endocrine disorder, unspecified; D47.3 Essential (hemorrhagic) thrombocythemia; R74.01 Elevation of levels of liver transaminase levels; E03.9 Hypothyroidism, unspecified; E83.39 Other disorders of phosphorus metabolism; E78.5 Hyperlipidemia, unspecified; E87.6 Hypokalemia; R53.81 Other malaise; Z88.0 Allergy status to penicillin; Z81.8 Family history of other mental and behavioral disorders; Z82.49 Family history of ischemic heart disease and other diseases of the circulatory system; Z79.52 Long term (current) use of systemic steroids; Z68.23 Body mass index [BMI] 23.0-23.9, adult

== ENCOUNTER → 2020-06-17 | Outpatient (CLI) | payer OTHER ==
[~2020-06-17] MED LIST changes: +DECADRON6 M1 PO; +DEPO-TESTO100 MG/1 M IM; +FISH OIL 1,0001 EAC4 PO; +NORTRIPTYLINE H50 M1 PO; +PROAIR HFA8.5 GM INH; +VENTOLIN 02.5 MG/3 M INH
[2020-06-17 08:20] LABS: BASO # 0.1 10*3/uL (0.0-0.1); BASO % 0.8 % (0.0-1.0); EOS # 0.1 10*3/uL (0.0-0.4); EOS % 0.8 % (1.0-4.0); HEMATOCRIT 48.1 % (42.0-52.0); LYMPH # 3.9 10*3/uL (1.3-4.4); LYMPH % 29.9 % (27.0-41.0); MEAN CELL VOLUME 97.6 fl (80.0-94.0); MEAN CORPUSCULAR HGB CONC 32.8 g/dl (33.0-37.0); MEAN PLATELET VOLUME 9.1 fl (9.6-12.3); MONO # 1.1 10*3/uL (0.1-1.0); NEUT # 7.7 10*3/uL (2.3-7.9); NEUT % 58.9 % (47.0-73.0); PLATELET COUNT AUTOMATED 318 10*3/uL (130-400); RED BLOOD COUNT 4.93 10*6/uL (4.50-5.90); RED CELL DISTRI WIDTH 13.6 % (0-14.5); WHITE BLOOD COUNT 13.1 10*3/uL (4.8-10.8)
[2020-06-17 08:59] LABS: ALBUMIN 3.4 gm/dl (3.1-4.5); ALKALINE PHOSPHATASE 74 U/L (45-117); BUN 15 mg/dl (7-24); CHLORIDE 106 mmol/L (98-107); CREATININE 0.55 mg/dL (0.70-1.30); FREE T4 1.32 ng/dl (0.76-1.46); POTASSIUM 3.7 mmol/L (3.5-5.1); SGOT/AST 18 IU/L (3-35); SGPT/ALT 38 U/L (12-78); SODIUM 138 mmol/L (136-145); T3 UPTAKE 41 % (31-39); TOTAL PROTEIN 6.6 gm/dL (6.4-8.2)
[2020-06-17 09:05] LABS: THYROID STIM HORMONE (HS) 0.297 uIU/ml (0.358-4.75)
[2020-06-18 02:06] LABS: HEMOGLOBIN 16.2 g/dL (13.0-17.7); RBC 5.05 x10E6/uL (4.14-5.80); WBC 12.1 x10E3/uL (3.4-10.8)
[2020-06-18 05:06] LABS: SEX HORMONE BINDING GLOBULIN 21.3 nmol/L (16.5-55.9)
[2020-06-18 12:07] LABS: ABS CD19+ LYMPHS 0 /uL (12-645); ABS CD8 SUPPRESSOR 1125 /uL (109-897); ABSOLUTE CD3 3567 /uL (622-2402); ABSOLUTE CD4 HELPER 2431 /uL (359-1519); CD4/CD8 RATIO 2.16 (0.92-3.72); PERCENT CD3 POS LYMPHS 96.4 % (57.5-86.2); PERCENT CD4 POS LYMPHS 65.7 % (30.8-58.5); PERCENT CD8 POS LYMPHS 30.4 % (12.0-35.5)
[2020-06-20 07:05] LABS: TESTOSTERONE FREE, (DIRECT) 2.2 pg/mL (6.8-21.5)
== END | disposition home or self-care (01) ==
LOC: LAB 00:15 → RAD 14:05 → LAB 14:29
PROVIDERS: Internal Medicine Endocrinology, Diabetes & Metabolism; ATTEND Psychiatry & Neurology Neuromuscular Medicine
DX: J18.9 Pneumonia, unspecified organism (principal); E03.8 Other specified hypothyroidism; D35.2 Benign neoplasm of pituitary gland; G61.81 Chronic inflammatory demyelinating polyneuritis; Z79.899 Other long term (current) drug therapy

== ENCOUNTER → 2020-08-25 | Outpatient (CLI) | payer OTHER ==
[2020-08-25 12:41] LABS: HEMATOCRIT 50.3 % (42.0-52.0)
[2020-08-25 13:09] LABS: ALBUMIN 3.6 gm/dl (3.1-4.5); ALKALINE PHOSPHATASE 72 U/L (45-117); BUN 20 mg/dl (7-24); CHLORIDE 107 mmol/L (98-107); CHOLESTEROL 337 mg/dL (<200); CREATININE 0.71 mg/dL (0.70-1.30); LDL CHOLESTEROL 243 mg/dL (9-159); POTASSIUM 3.9 mmol/L (3.5-5.1); SGOT/AST 20 IU/L (3-35); SGPT/ALT 36 U/L (12-78); SODIUM 137 mmol/L (136-145); T3 UPTAKE 37 % (31-39); THYROXINE (T4) TOTAL 10.9 ug/dl (4.5-12.1); TOTAL PROTEIN 7.3 gm/dL (6.4-8.2); TRIGLYCERIDES 294 mg/dl (<150)
[2020-08-26 04:06] LABS: PROLACTIN 21.3 ng/mL (4.0-15.2); SEX HORMONE BINDING GLOBULIN 28.4 nmol/L (16.5-55.9)
[2020-08-27 07:06] LABS: HUMAN GROWTH HORMONE 0.1 ng/mL (0.0-10.0)
[2020-08-29 16:06] LABS: TESTOSTERONE FREE, (DIRECT) 14.9 pg/mL (6.8-21.5)
== END | disposition home or self-care (01) ==
LOC: LAB 00:30
PROVIDERS: ATTEND Internal Medicine Endocrinology, Diabetes & Metabolism
DX: E55.9 Vitamin D deficiency, unspecified (principal); D35.2 Benign neoplasm of pituitary gland; E78.01 Familial hypercholesterolemia

== ENCOUNTER → 2020-11-02 | Outpatient (CLI) | payer OTHER ==
[2020-11-02 08:11] LABS: HEMATOCRIT 50.1 % (42.0-52.0)
[2020-11-02 08:44] LABS: ALBUMIN 3.6 gm/dl (3.1-4.5); ALKALINE PHOSPHATASE 101 U/L (45-117); BUN 15 mg/dl (7-24); CHLORIDE 105 mmol/L (98-107); CHOLESTEROL 283 mg/dL (<200); CREATININE 0.48 mg/dL (0.70-1.30); FREE T4 1.21 ng/dl (0.76-1.46); LDL CHOLESTEROL 201 mg/dL (9-159); POTASSIUM 3.9 mmol/L (3.5-5.1); SGOT/AST 23 IU/L (3-35); SGPT/ALT 44 U/L (12-78); SODIUM 138 mmol/L (136-145); TRIGLYCERIDES 246 mg/dl (<150)
[2020-11-02 08:48] LABS: THYROID STIM HORMONE (HS) 0.013 uIU/ml (0.358-4.75)
[2020-11-03 08:07] LABS: DHEA SULFATE 55.6 ug/dL (71.6-375.4); FOLLICLE STIMULATING HORMONE <0.3 mIU/mL (1.5-12.4); LUTEINIZING HORMONE <0.3 mIU/mL (1.7-8.6)
[2020-11-03 11:07] LABS: PROLACTIN 19.4 ng/mL (4.0-15.2)
[2020-11-06 19:06] LABS: TESTOSTERONE FREE, (DIRECT) 14.8 pg/mL (6.8-21.5)
== END | disposition home or self-care (01) ==
LOC: LAB 01:33
PROVIDERS: Internal Medicine Endocrinology, Diabetes & Metabolism; ATTEND Podiatrist
DX: E29.1 Testicular hypofunction (principal); E03.8 Other specified hypothyroidism; E22.1 Hyperprolactinemia; E78.01 Familial hypercholesterolemia; D35.2 Benign neoplasm of pituitary gland

== ENCOUNTER → 2021-03-16 | Outpatient (CLI) | payer OTHER | LOC: US 00:31 | PROVIDERS: ATTEND Nurse Practitioner Primary Care | DX: Z13.6 Encounter for screening for cardiovascular disorders (principal); I10 Essential (primary) hypertension; E78.5 Hyperlipidemia, unspecified ==

== ENCOUNTER → 2021-03-25 | Outpatient (CLI) | payer OTHER ==
[2021-03-25 09:02] LABS: BASO # 0.1 10*3/uL (0.0-0.1); EOS # 0.3 10*3/uL (0.0-0.4); EOS % 2.8 % (1.0-4.0); HEMATOCRIT 51.7 % (42.0-52.0); LYMPH # 3.3 10*3/uL (1.3-4.4); LYMPH % 34.1 % (27.0-41.0); MEAN CORPUSCULAR HGB 30.4 pg (27.0-31.0); MEAN CORPUSCULAR HGB CONC 32.7 g/dl (33.0-37.0); MEAN PLATELET VOLUME 9.6 fl (9.6-12.3); MONO # 0.9 10*3/uL (0.1-1.0); MONO % 9.4 % (3.0-9.0); NEUT % 51.9 % (47.0-73.0); PLATELET COUNT AUTOMATED 307 10*3/uL (130-400); RED BLOOD COUNT 5.56 10*6/uL (4.50-5.90); RED CELL DISTRI WIDTH 12.6 % (0-14.5); WHITE BLOOD COUNT 9.6 10*3/uL (4.8-10.8)
[2021-03-25 09:26] LABS: ALBUMIN 3.6 gm/dl (3.1-4.5); BUN 19 mg/dl (7-24); CHLORIDE 108 mmol/L (98-107); SODIUM 140 mmol/L (136-145)
[2021-03-25 09:29] LABS: ALKALINE PHOSPHATASE 110 U/L (45-117); CHOLESTEROL 356 mg/dL (<200); CREATININE 0.71 mg/dL (0.70-1.30); FREE T4 0.98 ng/dl (0.76-1.46); LDL CHOLESTEROL 268 mg/dL (9-159); SGOT/AST 44 IU/L (3-35); SGPT/ALT 83 U/L (12-78); TRIGLYCERIDES 215 mg/dl (<150)
[2021-03-26 04:06] LABS: PROLACTIN 13.8 ng/mL (4.0-15.2)
[2021-03-27 00:05] LABS: TESTOSTERONE FREE, (DIRECT) 2.2 pg/mL (6.8-21.5)
== END | disposition home or self-care (01) ==
LOC: LAB 05:08
PROVIDERS: ATTEND Internal Medicine
DX: E23.7 Disorder of pituitary gland, unspecified (principal)

== ENCOUNTER → 2021-05-13 | Outpatient (CLI) | payer OTHER ==
[2021-05-15 06:36] LABS: TESTOSTERONE FREE, (DIRECT) 26.5 pg/mL (6.8-21.5)
== END | disposition home or self-care (01) ==
LOC: LAB 07:35
PROVIDERS: ATTEND Nurse Practitioner Primary Care
DX: R79.89 Other specified abnormal findings of blood chemistry (principal)

== ENCOUNTER → 2021-09-26 | Outpatient (CLI) | payer OTHER ==
[2021-09-26 08:49] LABS: BASO # 0.1 10*3/uL (0.0-0.1); BASO % 0.9 % (0.0-1.0); EOS # 0.4 10*3/uL (0.0-0.4); EOS % 3.2 % (1.0-4.0); HEMATOCRIT 52.1 % (42.0-52.0); LYMPH # 2.8 10*3/uL (1.3-4.4); LYMPH % 23.7 % (27.0-41.0); MEAN CORPUSCULAR HGB 31.4 pg (27.0-31.0); MEAN CORPUSCULAR HGB CONC 34.2 g/dl (33.0-37.0); MEAN PLATELET VOLUME 9.1 fl (9.6-12.3); MONO # 1.1 10*3/uL (0.1-1.0); MONO % 9.3 % (3.0-9.0); NEUT # 7.4 10*3/uL (2.3-7.9); NEUT % 62.3 % (47.0-73.0); PLATELET COUNT AUTOMATED 285 10*3/uL (130-400); RED BLOOD COUNT 5.66 10*6/uL (4.50-5.90); RED CELL DISTRI WIDTH 12.5 % (0-14.5); WHITE BLOOD COUNT 11.9 10*3/uL (4.8-10.8)
[2021-09-26 09:08] LABS: ALKALINE PHOSPHATASE 100 U/L (45-117); BUN 13 mg/dl (7-24); CHLORIDE 106 mmol/L (98-107); CREATININE 0.66 mg/dL (0.70-1.30); POTASSIUM 4.3 mmol/L (3.5-5.1); SGOT/AST 43 IU/L (3-35); SGPT/ALT 61 U/L (12-78); SODIUM 138 mmol/L (136-145); TOTAL PROTEIN 6.9 gm/dL (6.4-8.2)
[2021-09-27 03:06] LABS: HEMATOCRIT 51.1 % (37.5-51.0); RBC 5.51 x10E6/uL (4.14-5.80); WBC 11.1 x10E3/uL (3.4-10.8)
[2021-09-27 15:06] LABS: ABS CD19+ LYMPHS 0 /uL (12-645); ABS CD8 SUPPRESSOR 910 /uL (109-897); ABSOLUTE CD3 2618 /uL (622-2402); ABSOLUTE CD4 HELPER 1719 /uL (359-1519); CD4/CD8 RATIO 1.89 (0.92-3.72); PERCENT CD3 POS LYMPHS 93.5 % (57.5-86.2); PERCENT CD4 POS LYMPHS 61.4 % (30.8-58.5); PERCENT CD8 POS LYMPHS 32.5 % (12.0-35.5)
== END | disposition home or self-care (01) ==
LOC: LAB 01:49
PROVIDERS: ATTEND Psychiatry & Neurology Neuromuscular Medicine
DX: G61.81 Chronic inflammatory demyelinating polyneuritis (principal); R20.0 Anesthesia of skin; R20.9 Unspecified disturbances of skin sensation; R94.131 Abnormal electromyogram [EMG]; R53.83 Other fatigue

== ENCOUNTER → 2022-02-13 | Outpatient (CLI) | payer OTHER | END | disposition home or self-care (01) | LOC: RAD 15:00 | PROVIDERS: ATTEND Nurse Practitioner Family | DX: U07.1 COVID-19 (principal); R05.9 Cough, unspecified; G61.81 Chronic inflammatory demyelinating polyneuritis; Z79.899 Other long term (current) drug therapy ==

== ENCOUNTER → 2022-03-15 | Outpatient (CLI) | payer OTHER ==
[2022-03-15 09:42] LABS: BASO # 0.1 10*3/uL (0.0-0.1); BASO % 1.1 % (0.0-1.0); EOS # 0.5 10*3/uL (0.0-0.4); EOS % 3.8 % (1.0-4.0); LYMPH # 3.7 10*3/uL (1.3-4.4); LYMPH % 30.6 % (27.0-41.0); MEAN CORPUSCULAR HGB 31.5 pg (27.0-31.0); MEAN CORPUSCULAR HGB CONC 33.8 g/dl (33.0-37.0); MEAN PLATELET VOLUME 8.9 fl (9.6-12.3); MONO # 1.1 10*3/uL (0.1-1.0); MONO % 8.7 % (3.0-9.0); NEUT # 6.7 10*3/uL (2.3-7.9); NEUT % 54.7 % (47.0-73.0); PLATELET COUNT AUTOMATED 309 10*3/uL (130-400); RED BLOOD COUNT 5.59 10*6/uL (4.50-5.90); RED CELL DISTRI WIDTH 12.4 % (0-14.5); WHITE BLOOD COUNT 12.2 10*3/uL (4.8-10.8)
[2022-03-15 10:11] LABS: ALKALINE PHOSPHATASE 89 U/L (46-116); BUN 13 mg/dl (9-23); CHLORIDE 103 mmol/L (98-107); CHOLESTEROL 293 mg/dL (<200); CREATININE 0.71 mg/dL (0.70-1.30); FREE T4 1.33 ng/dl (0.89-1.76); LDL CHOLESTEROL 187 mg/dL (9-159); POTASSIUM 4.1 mmol/L (3.4-5.1); SGPT/ALT 62 U/L (10-49); TOTAL PROTEIN 6.6 gm/dL (6.0-8.0); TRIGLYCERIDES 327 mg/dl (<150)
[2022-03-16 01:06] LABS: HEMATOCRIT 52.2 % (37.5-51.0); HEMOGLOBIN 17.7 g/dL (13.0-17.7); RBC 5.46 x10E6/uL (4.14-5.80)
[2022-03-16 14:07] LABS: ABS CD19+ LYMPHS 0 /uL (12-645); ABS CD8 SUPPRESSOR 1021 /uL (109-897); ABSOLUTE CD3 3515 /uL (622-2402); ABSOLUTE CD4 HELPER 2490 /uL (359-1519); CD4/CD8 RATIO 2.44 (0.92-3.72); PERCENT CD4 POS LYMPHS 67.3 % (30.8-58.5); PERCENT CD8 POS LYMPHS 27.6 % (12.0-35.5)
== END | disposition home or self-care (01) ==
LOC: LAB 02:24
PROVIDERS: Psychiatry & Neurology Neuromuscular Medicine; ATTEND Internal Medicine
DX: E23.7 Disorder of pituitary gland, unspecified (principal)

== ENCOUNTER → 2022-07-11 | Outpatient (CLI) | payer MEDICARE | END | disposition home or self-care (01) | LOC: RAD 11:49 | PROVIDERS: ATTEND Nurse Practitioner Family | DX: R05.9 Cough, unspecified (principal) ==

== ENCOUNTER → 2022-08-16 | Outpatient (CLI) | payer MEDICARE ==
[2022-08-16 13:01] LABS: HEMATOCRIT 52.5 % (42.0-52.0); MEAN CELL VOLUME 94.8 fl (80.0-94.0); MEAN CORPUSCULAR HGB 31.8 pg (27.0-31.0); MEAN CORPUSCULAR HGB CONC 33.5 g/dl (33.0-37.0); MEAN PLATELET VOLUME 9.4 fl (9.6-12.3); PLATELET COUNT AUTOMATED 301 10*3/uL (130-400); RED BLOOD COUNT 5.54 10*6/uL (4.50-5.90); RED CELL DISTRI WIDTH 12.2 % (0-14.5); WHITE BLOOD COUNT 16.2 10*3/uL (4.8-10.8)
[2022-08-16 13:07] LABS: MANUAL DIFF REFLEX YES
[2022-08-16 13:20] LABS: TOTAL CELLS COUNTED 100 #CELLS
[2022-08-16 13:21] LABS: PLATELET SUFFICIENCY NORMAL (NORMAL); POLYCHROMASIA SLIGHT; STOMATOCYTE FEW
[2022-08-16 13:25] LABS: URIC ACID 7.1 mg/dL (3.7-9.2)
== END | disposition home or self-care (01) ==
LOC: LAB 12:06
PROVIDERS: ATTEND Nurse Practitioner Family
DX: G61.81 Chronic inflammatory demyelinating polyneuritis (principal); R07.9 Chest pain, unspecified; R60.0 Localized edema; M25.522 Pain in left elbow

== ENCOUNTER → 2022-08-28 | Outpatient (CLI) | payer MEDICARE ==
[2022-08-28 10:10] LABS: BASO # 0.1 10*3/uL (0.0-0.1); BASO % 0.8 % (0.0-1.0); EOS # 0.3 10*3/uL (0.0-0.4); EOS % 2.2 % (1.0-4.0); HEMATOCRIT 54.2 % (42.0-52.0); LYMPH # 2.9 10*3/uL (1.3-4.4); LYMPH % 25.5 % (27.0-41.0); MEAN CELL VOLUME 96.6 fl (80.0-94.0); MEAN CORPUSCULAR HGB 32.3 pg (27.0-31.0); MEAN CORPUSCULAR HGB CONC 33.4 g/dl (33.0-37.0); MEAN PLATELET VOLUME 9.2 fl (9.6-12.3); MONO % 8.4 % (3.0-9.0); NEUT # 7.1 10*3/uL (2.3-7.9); NEUT % 62.4 % (47.0-73.0); PLATELET COUNT AUTOMATED 328 10*3/uL (130-400); RED BLOOD COUNT 5.61 10*6/uL (4.50-5.90); RED CELL DISTRI WIDTH 12.2 % (0-14.5); WHITE BLOOD COUNT 11.4 10*3/uL (4.8-10.8)
[2022-08-28 10:48] LABS: ALKALINE PHOSPHATASE 94 U/L (46-116); BUN 10 mg/dl (9-23); CHLORIDE 102 mmol/L (98-107); POTASSIUM 4.4 mmol/L (3.4-5.1); SGPT/ALT 43 U/L (10-49); TOTAL PROTEIN 6.8 gm/dL (6.0-8.0)
[2022-08-29 02:06] LABS: HEMATOCRIT 53.5 % (37.5-51.0); HEMOGLOBIN 17.9 g/dL (13.0-17.7); RBC 5.64 x10E6/uL (4.14-5.80); WBC 10.9 x10E3/uL (3.4-10.8)
[2022-08-29 16:08] LABS: ABS CD19+ LYMPHS 3 /uL (12-645); ABS CD8 SUPPRESSOR 787 /uL (109-897); ABSOLUTE CD3 2643 /uL (622-2402); ABSOLUTE CD4 HELPER 1831 /uL (359-1519); CD4/CD8 RATIO 2.33 (0.92-3.72); PERCENT CD19+LYMPHS 0.1 % (3.3-25.4); PERCENT CD3 POS LYMPHS 94.4 % (57.5-86.2); PERCENT CD4 POS LYMPHS 65.4 % (30.8-58.5); PERCENT CD8 POS LYMPHS 28.1 % (12.0-35.5)
== END | disposition home or self-care (01) ==
LOC: LAB 09:26
PROVIDERS: ATTEND Psychiatry & Neurology Neuromuscular Medicine
DX: G61.81 Chronic inflammatory demyelinating polyneuritis (principal); R53.1 Weakness; R94.131 Abnormal electromyogram [EMG]; R26.9 Unspecified abnormalities of gait and mobility; R20.0 Anesthesia of skin; R20.2 Paresthesia of skin

== ENCOUNTER → 2022-09-05 | Outpatient (CLI) | payer MEDICARE ==
[2022-09-05 09:39] LABS: ALKALINE PHOSPHATASE 88 U/L (46-116); BUN 13 mg/dl (9-23); CHLORIDE 102 mmol/L (98-107); CHOLESTEROL 205 mg/dL (<200); LDL CHOLESTEROL 115 mg/dL (9-159); POTASSIUM 4.3 mmol/L (3.4-5.1); SGPT/ALT 35 U/L (10-49); TOTAL PROTEIN 6.6 gm/dL (6.0-8.0); TRIGLYCERIDES 281 mg/dl (<150)
== END | disposition home or self-care (01) ==
LOC: LAB 08:39
PROVIDERS: ATTEND Nurse Practitioner
DX: E78.01 Familial hypercholesterolemia (principal)

== ENCOUNTER → 2022-09-26 | Outpatient (CLI) | payer MEDICARE ==
[2022-09-26 09:19] LABS: BASO # 0.1 10*3/uL (0.0-0.1); BASO % 0.9 % (0.0-1.0); EOS # 0.3 10*3/uL (0.0-0.4); EOS % 2.8 % (1.0-4.0); HEMATOCRIT 55.5 % (42.0-52.0); LYMPH # 2.9 10*3/uL (1.3-4.4); LYMPH % 29.9 % (27.0-41.0); MEAN CELL VOLUME 94.1 fl (80.0-94.0); MEAN CORPUSCULAR HGB 31.9 pg (27.0-31.0); MEAN CORPUSCULAR HGB CONC 33.9 g/dl (33.0-37.0); MEAN PLATELET VOLUME 9.3 fl (9.6-12.3); MONO # 1.1 10*3/uL (0.1-1.0); MONO % 11.3 % (3.0-9.0); NEUT # 5.3 10*3/uL (2.3-7.9); NEUT % 54.1 % (47.0-73.0); PLATELET COUNT AUTOMATED 295 10*3/uL (130-400); RED CELL DISTRI WIDTH 12.1 % (0-14.5); WHITE BLOOD COUNT 9.8 10*3/uL (4.8-10.8)
[2022-09-26 10:00] LABS: ALKALINE PHOSPHATASE 91 U/L (46-116); BUN 13 mg/dl (9-23); CHLORIDE 103 mmol/L (98-107); CHOLESTEROL 225 mg/dL (<200); FREE T4 1.09 ng/dl (0.89-1.76); LDL CHOLESTEROL 124 mg/dL (9-159); SGPT/ALT 61 U/L (10-49); TOTAL PROTEIN 6.9 gm/dL (6.0-8.0); TRIGLYCERIDES 287 mg/dl (<150)
== END | disposition home or self-care (01) ==
LOC: LAB 08:43
PROVIDERS: ATTEND Nurse Practitioner Family
DX: E78.2 Mixed hyperlipidemia (principal); E03.8 Other specified hypothyroidism; Z79.899 Other long term (current) drug therapy

== ENCOUNTER → 2023-01-26 | Outpatient (CLI) | payer MEDICARE ==
[2023-01-26 10:01] LABS: TOTAL PROTEIN 7.8 gm/dL (6.0-8.0)
== END | disposition home or self-care (01) ==
LOC: US 01-19 08:30 → LAB 07:40 → US 08:30
PROVIDERS: ATTEND Nurse Practitioner Family
DX: K76.0 Fatty (change of) liver, not elsewhere classified (principal); R79.89 Other specified abnormal findings of blood chemistry

== ENCOUNTER → 2023-03-17 | Outpatient (CLI) | payer MEDICARE ==
[2023-03-17 08:31] LABS: BASO % 0.3 % (0.0-1.0); EOS % 0.1 % (1.0-4.0); HEMATOCRIT 50.5 % (42.0-52.0); LYMPH # 1.6 10*3/uL (1.3-4.4); MEAN CELL VOLUME 96.6 fl (80.0-94.0); MEAN CORPUSCULAR HGB 31.9 pg (27.0-31.0); MEAN CORPUSCULAR HGB CONC 33.1 g/dl (33.0-37.0); MONO # 1.2 10*3/uL (0.1-1.0); MONO % 9.5 % (3.0-9.0); NEUT # 9.6 10*3/uL (2.3-7.9); NEUT % 76.3 % (47.0-73.0); PLATELET COUNT AUTOMATED 284 10*3/uL (130-400); RED BLOOD COUNT 5.23 10*6/uL (4.50-5.90); RED CELL DISTRI WIDTH 12.3 % (0-14.5); WHITE BLOOD COUNT 12.6 10*3/uL (4.8-10.8)
[2023-03-17 09:05] LABS: ALKALINE PHOSPHATASE 91 U/L (46-116); BUN 19 mg/dl (9-23); CHLORIDE 105 mmol/L (98-107); SGPT/ALT 89 U/L (5-49)
== END | disposition home or self-care (01) ==
LOC: LAB 08:16
DX: G61.81 Chronic inflammatory demyelinating polyneuritis (principal); Z79.899 Other long term (current) drug therapy

== ENCOUNTER → 2023-10-23 | Outpatient (CLI) | payer MEDICARE ==
[2023-10-23 09:48] LABS: BASO # 0.1 10*3/uL (0.0-0.1); BASO % 1.1 % (0.0-1.0); EOS # 0.3 10*3/uL (0.0-0.4); HEMATOCRIT 52.7 % (42.0-52.0); LYMPH # 3.4 10*3/uL (1.3-4.4); LYMPH % 32.4 % (27.0-41.0); MEAN CELL VOLUME 94.8 fl (80.0-94.0); MEAN CORPUSCULAR HGB 32.6 pg (27.0-31.0); MEAN CORPUSCULAR HGB CONC 34.3 g/dl (33.0-37.0); MEAN PLATELET VOLUME 9.5 fl (9.6-12.3); MONO # 1.1 10*3/uL (0.1-1.0); MONO % 10.5 % (3.0-9.0); NEUT # 5.5 10*3/uL (2.3-7.9); NEUT % 52.1 % (47.0-73.0); PLATELET COUNT AUTOMATED 338 10*3/uL (130-400); RED BLOOD COUNT 5.56 10*6/uL (4.50-5.90); RED CELL DISTRI WIDTH 12.6 % (0-14.5); WHITE BLOOD COUNT 10.6 10*3/uL (4.8-10.8)
[2023-10-23 10:19] LABS: ALKALINE PHOSPHATASE 99 U/L (46-116); BUN 16 mg/dl (9-23); CHLORIDE 102 mmol/L (98-107); CHOLESTEROL 257 mg/dL (<200); LDL CHOLESTEROL 148 mg/dL (9-159); POTASSIUM 3.6 mmol/L (3.4-5.1); SGPT/ALT 79 U/L (5-49); TOTAL PROTEIN 7.8 gm/dL (6.0-8.0); TRIGLYCERIDES 359 mg/dl (<150)
== END | disposition home or self-care (01) ==
LOC: LAB 07:54
PROVIDERS: ATTEND Nurse Practitioner Family
DX: E78.2 Mixed hyperlipidemia (principal); E55.9 Vitamin D deficiency, unspecified; E78.01 Familial hypercholesterolemia; R73.02 Impaired glucose tolerance (oral)

== ENCOUNTER → 2023-10-30 | Outpatient (CLI) | payer MEDICARE | END | disposition home or self-care (01) | LOC: US 09:00 | PROVIDERS: ATTEND Nurse Practitioner Family | DX: K76.0 Fatty (change of) liver, not elsewhere classified (principal); E78.01 Familial hypercholesterolemia; R79.89 Other specified abnormal findings of blood chemistry; E03.8 Other specified hypothyroidism; R73.02 Impaired glucose tolerance (oral); N28.89 Other specified disorders of kidney and ureter; Z79.899 Other long term (current) drug therapy ==

== ENCOUNTER → 2023-11-08 | Outpatient (CLI) | payer MEDICARE ==
[2023-11-08 11:37] LABS: BASO # 0.1 10*3/uL (0.0-0.1); BASO % 0.9 % (0.0-1.0); EOS # 0.1 10*3/uL (0.0-0.4); EOS % 1.2 % (1.0-4.0); HEMATOCRIT 55.3 % (42.0-52.0); LYMPH # 2.3 10*3/uL (1.3-4.4); LYMPH % 28.8 % (27.0-41.0); MEAN CELL VOLUME 96.8 fl (80.0-94.0); MEAN CORPUSCULAR HGB 31.9 pg (27.0-31.0); MEAN CORPUSCULAR HGB CONC 32.9 g/dl (33.0-37.0); MONO # 1.4 10*3/uL (0.1-1.0); MONO % 17.9 % (3.0-9.0); NEUT % 50.1 % (47.0-73.0); PLATELET COUNT AUTOMATED 266 10*3/uL (130-400); RED BLOOD COUNT 5.71 10*6/uL (4.50-5.90); RED CELL DISTRI WIDTH 12.6 % (0-14.5); WHITE BLOOD COUNT 8.1 10*3/uL (4.8-10.8)
[2023-11-08 11:49] LABS: ACT PARTIAL THROMBO TIME 23.9 SECONDS (20.0-32.1)
[2023-11-08 12:09] LABS: ALKALINE PHOSPHATASE 109 U/L (46-116); BUN 13 mg/dl (9-23); CHLORIDE 103 mmol/L (98-107); FREE T4 0.96 ng/dl (0.89-1.76); POTASSIUM 4.1 mmol/L (3.4-5.1); SGPT/ALT 87 U/L (5-49); T3 UPTAKE 29.1 % (22.4-36.7); TOTAL PROTEIN 8.8 gm/dL (6.0-8.0)
[2023-11-09 05:07] LABS: ALPHA-1-ANTITRYPSIN, SERUM 133 mg/dL (101-187); HEPATITIS B SURFACE AB Reactive (.); HEPATITIS B SURFACE AG Negative (Negative)
[2023-11-09 13:07] LABS: t-TRANSGLUTAMINASE (tTG) IGA <2 U/mL (0-3); t-TRANSGLUTAMINASE (tTG) IgG 6 U/mL (0-5)
[2023-11-09 14:09] LABS: ANTI-SMOOTH MUSCLE ANTIBODY 14 Units (0-19)
== END | disposition home or self-care (01) ==
LOC: LAB 11:09
PROVIDERS: ATTEND Nurse Practitioner Family
DX: D64.9 Anemia, unspecified (principal)

== ENCOUNTER → 2024-02-29 | Outpatient (CLI) | payer MEDICARE ==
[2024-02-29 09:36] LABS: ALKALINE PHOSPHATASE 117 U/L (46-116); BUN 14 mg/dl (9-23); CHLORIDE 101 mmol/L (98-107); POTASSIUM 4.2 mmol/L (3.4-5.1); SGPT/ALT 72 U/L (5-49); TOTAL PROTEIN 8.1 gm/dL (6.0-8.0)
[2024-03-01 06:08] LABS: HEPATITIS Be ANTIGEN Negative (Negative)
[2024-03-01 15:06] LABS: ANTI-SMOOTH MUSCLE ANTIBODY 11 Units (0-19)
== END | disposition home or self-care (01) ==
LOC: LAB 08:14
PROVIDERS: ATTEND Nurse Practitioner Family
DX: Z13.818 Encounter for screening for other digestive system disorders (principal); R74.01 Elevation of levels of liver transaminase levels; R32 Unspecified urinary incontinence; D35.2 Benign neoplasm of pituitary gland

== ENCOUNTER → 2024-04-29 | Outpatient (CLI) | payer MEDICARE ==
[2024-04-29 10:53] LABS: BASO # 0.1 10*3/uL (0.0-0.1); BASO % 0.7 % (0.0-1.0); EOS # 0.1 10*3/uL (0.0-0.4); EOS % 1.7 % (1.0-4.0); HEMATOCRIT 52.5 % (42.0-52.0); MEAN CELL VOLUME 94.1 fl (80.0-94.0); MEAN CORPUSCULAR HGB 32.4 pg (27.0-31.0); MEAN CORPUSCULAR HGB CONC 34.5 g/dl (33.0-37.0); MONO # 0.8 10*3/uL (0.1-1.0); MONO % 9.8 % (3.0-9.0); NEUT # 4.4 10*3/uL (2.3-7.9); NEUT % 53.1 % (47.0-73.0); PLATELET COUNT AUTOMATED 252 10*3/uL (130-400); RED BLOOD COUNT 5.58 10*6/uL (4.50-5.90); RED CELL DISTRI WIDTH 12.6 % (0-14.5); WHITE BLOOD COUNT 8.3 10*3/uL (4.8-10.8)
[2024-04-29 11:16] LABS: ALKALINE PHOSPHATASE 83 U/L (46-116); BUN 17 mg/dl (9-23); CHLORIDE 103 mmol/L (98-107); POTASSIUM 4.2 mmol/L (3.4-5.1); SGPT/ALT 62 U/L (5-49); TOTAL PROTEIN 8.2 gm/dL (6.0-8.0)
[2024-04-29 11:20] LABS: FREE T4 1.27 ng/dl (0.89-1.76)
[2024-04-29 11:37] LABS: VITAMIN D, 25-HYDROXY 69.6 ng/mL (30-100)
[2024-04-30 15:06] LABS: ANTI-SMOOTH MUSCLE ANTIBODY 12 Units (0-19)
[2024-05-01 00:05] LABS: ALPHA 2-MACAROGLOBULINS 133 mg/dL (110-276); ALT (SGPT) P5P 66 IU/L (0-55); APOLIPOPROEIN A-1 108 mg/dL (101-178); BILIRUBIN, TOTAL 0.5 mg/dL (0.0-1.2); CHOLESTEROL, TOTAL 236 mg/dL (100-199); FIBROSIS STAGE F0-F1 (.); GGT 78 IU/L (0-65); GLUCOSE, SERUM 88 mg/dL (70-99); HAPTOGLOBIN 127 mg/dL (23-355); TRIGLYCERIDES 313 mg/dL (0-149)
== END | disposition home or self-care (01) ==
LOC: LAB 10:36
PROVIDERS: Nurse Practitioner Family; ATTEND Internal Medicine
DX: E55.9 Vitamin D deficiency, unspecified (principal); E03.8 Other specified hypothyroidism; G61.81 Chronic inflammatory demyelinating polyneuritis; I10 Essential (primary) hypertension; E78.2 Mixed hyperlipidemia

== ENCOUNTER → 2024-06-02 | Outpatient (CLI) | payer MEDICARE ==
[2024-06-02 10:29] LABS: ALKALINE PHOSPHATASE 88 U/L (46-116); BUN 12 mg/dl (9-23); CHLORIDE 103 mmol/L (98-107); CHOLESTEROL 227 mg/dL (<200); LDL CHOLESTEROL 154 mg/dL (9-159); POTASSIUM 4.1 mmol/L (3.4-5.1); SGPT/ALT 51 U/L (5-49); TOTAL PROTEIN 7.6 gm/dL (6.0-8.0); TRIGLYCERIDES 190 mg/dl (<150); URIC ACID 6.2 mg/dL (3.7-9.2)
== END | disposition home or self-care (01) ==
LOC: LAB 09:15
PROVIDERS: ATTEND Nurse Practitioner
DX: E78.01 Familial hypercholesterolemia (principal); Z82.49 Family history of ischemic heart disease and other diseases of the circulatory system; Z78.9 Other specified health status

== ENCOUNTER → 2024-10-28 | Outpatient (CLI) | payer MEDICARE ==
[2024-10-28 13:07] LABS: BASO # 0.1 10*3/uL (0.0-0.1); BASO % 1.1 % (0.0-1.0); EOS # 0.3 10*3/uL (0.0-0.4); EOS % 3.7 % (1.0-4.0); MEAN CELL VOLUME 95.7 fl (80.0-94.0); MEAN CORPUSCULAR HGB 32.3 pg (27.0-31.0); MEAN PLATELET VOLUME 9.2 fl (9.6-12.3); MONO # 0.9 10*3/uL (0.1-1.0); MONO % 10.7 % (3.0-9.0); NEUT # 4.8 10*3/uL (2.3-7.9); NEUT % 55.9 % (47.0-73.0); NUCLEATED RED BLOOD CELL 0.0 % (0.0-0.0); NUCLEATED RED BLOOD CELL 0.0 10*3/uL (0.0-0.0); PLATELET COUNT AUTOMATED 298 10*3/uL (130-400); RED CELL DISTRI WIDTH 12.8 % (0-14.5)
[2024-10-28 13:43] LABS: BUN 15 mg/dl (9-23); LDL CHOLESTEROL 153 mg/dL (9-159); SGPT/ALT 55 U/L (5-49)
[2024-10-28 13:48] LABS: VITAMIN D, 25-HYDROXY 83.7 ng/mL (30-100)
[2024-10-28 13:59] LABS: FREE T4 1.56 ng/dl (0.89-1.76)
== END | disposition home or self-care (01) ==
LOC: LAB 12:42
PROVIDERS: ATTEND Internal Medicine
DX: I10 Essential (primary) hypertension (principal); E78.5 Hyperlipidemia, unspecified; E03.8 Other specified hypothyroidism; G61.81 Chronic inflammatory demyelinating polyneuritis; I48.91 Unspecified atrial fibrillation; E55.9 Vitamin D deficiency, unspecified